=== PATIENT | male | born 1960 | race Caucasian/White ===

== ENCOUNTER 2020-10-28 10:26 | Emergency (ER) | payer BC ==
[2020-10-28] MEDS ORDERED: Ondansetron 4 MG Tab.DIS PO ONE (11:29)
--- NOTE | 2020-10-28 11:37 | EDM.PDOC ---
ED HPI GENERAL MEDICAL PROBLEM - General Chief Complaint: General Stated Complaint: DIZZY,NAUSEA,CLAMMY Time Seen by Provider: 10/28/20 11:05 Source of Information: Reports: Patient, RN Notes Reviewed History Limitations: Reports: No Limitations - History of Present Illness INITIAL COMMENTS - FREE TEXT/NARRATIVE: Patient is a 60-year-old male presenting to the emergency department with complaints of intermittent sensation of the room spinning and nausea. Reports this has been going on since yesterday. Symptoms are worse when he first wakes in the morning. Throughout the day they improve. Today he had a DEXA scan at [facility], and when he had to lay down for the test and then move the bed around he had symptoms of extreme vertigo. He has not vomited, but does co mplain of nausea. States that his balance feels off when symptoms are present. Reports he has had this in the past on 2 other occasions over the last few months. Symptoms in these situations resolved spontaneously. - Related Data Allergies Allergy/AdvReac Type Severity Reaction Status Date / Time No Known Allergies Allergy Verified 10/28/20 10:44 Home Meds: Home Meds Meclizine [Antivert] 25 mg PO Q6H PRN #30 tab 10/28/20 [Rx] Meloxicam, Submicronized [Meloxicam] 7.5 mg PO DAILY 10/28/20 [History] Ondansetron [Zofran ODT] 4 mg PO Q6H PRN #10 tab.dis 10/28/20 [Rx] Pramipexole [Mirapex] 0.125 mg PO DAILY 10/28/20 [History] Ramipril 10 mg PO DAILY 10/28/20 [History] Rosuvastatin [Crestor] 20 mg PO DAILY 10/28/20 [History] traMADol [Ultram] 100 mg PO DAILY 10/28/20 [History] Past Medical History Cardiovascular History: Reports: Hypertension - Past Surgical History Musculoskeletal Surgical History: Reports: Other (See Below) Other Musculoskeletal Surgeries/Procedures:: fractured foot with surgical repair x 2 Social & Family History - Tobacco Use Tobacco Use Status *Q: Former Tobacco User Used Tobacco, but Quit: Yes Month/Year Tobacco Last Used: 18 yrs ago ED ROS GENERAL - Review of Systems Review Of Systems: See Below Constitutional: Reports: No Symptoms. Denies: Fever, Chills HEENT: Reports: Vertigo. Denies: Vision Change Respiratory: Reports: No Symptoms. Denies: Shortness of Breath Cardiovascular: Reports: No Symptoms. Denies: Chest Pain, Dyspnea on Exertion, Syncope Endocrine: Reports: No Symptoms GI/Abdominal: Reports: Nausea. Denies: Abdominal Pain, Diarrhea, Vomiting : Reports: No Symptoms Musculoskeletal: Reports: No Symptoms Skin: Reports: No Symptoms Neurological: Reports: Dizziness Psychiatric: Reports: No Symptoms Hematologic/Lymphatic: Reports: No Symptoms Immunologic: Reports: No Symptoms ED EXAM, GENERAL - Physical Exam Exam: See Below General Appearance: Alert, WD/WN, No Apparent Distress Eye Exam: Bilateral Eye: Normal Inspection (no visible nystagmus with position changes.) Ears: Normal External Exam, Normal Canal, Hearing Grossly Normal, Normal TMs Respiratory/Chest: No Respiratory Distress, Lungs Clear, Normal Breath Sounds, No Accessory Muscle Use, Chest Non-Tender Cardiovascular: Normal Peripheral Pulses, Regular Rate, Rhythm, No Edema, No Gallop, No JVD, No Murmur, No Rub GI/Abdominal: Normal Bowel Sounds, Soft, Non-Tender, No Organomegaly, No Distention, No Abnormal Bruit, No Mass Neurological: Alert, Oriented, CN II-XII Intact, Normal Cognition, Normal Gait, Normal Reflexes, No Motor/Sensory Deficits Psychiatric: Normal Affect, Normal Mood Skin Exam: Warm, Dry, Intact, Normal Color, No Rash #1 Interpretation EKG Date: 10/28/20 Time: 12:31 Rhythm: NSR Rate (Beats/Min): 70 [place]: Normal P-Wave: Present QRS: Normal ST-T: Normal QT: Normal EKG Interpretation Comments: Small Q wave in lead III, no ST elevation or depression, EKG interpreted by Dr. Johnathan OSMAN Course - Vital Signs Last Recorded V/S: Last Vital Signs Temp 98.4 F 10/28/20 10:41 Pulse 67 10/28/20 10:41 Resp 18 10/28/20 10:41 BP 146/93 H 10/28/20 10:41 Pulse Ox 99 10/28/20 10:41 - Orders/Labs/Meds Labs: Laboratory Tests 10/28/20 10/28/20 Range/Units 11:42 11:42 WBC 7.72 (4.23-9.07) K/mm3 RBC 5.30 (4.63-6.08) M/mm3 Hgb 15.1 (13.7-17.5) gm/dl Hct 45.2 (40.1-51.0) % MCV 85.3 (79.0-92.2) fl MCH 28.5 (25.7-32.2) pg MCHC 33.4 (32.2-35.5) g/dl RDW Std Deviation 38.9 (35.1-43.9) fL Plt Count 299 (163-337) K/mm3 MPV 9.9 (9.4-12.3) fl Neut % (Auto) 66.5 (34.0-67.9) % Lymph % (Auto) 21.1 L (21.8-53.1) % [place] % (Auto) 7.9 (5.3-12.2) % Eos % (Auto) 2.8 (0.8-7.0) Baso % (Auto) 1.6 H (0.1-1.2) % Neut # (Auto) 5.13 (1.78-5.38) K/mm3 Lymph # (Auto) 1.63 (1.32-3.57) K/mm3 [place] # (Auto) 0.61 (0.30-0.82) K/mm3 Eos # (Auto) 0.22 (0.04-0.54) K/mm3 Baso # (Auto) 0.12 H (0.01-0.08) K/mm3 Manual Slide Review Normal smear Sodium 142 (136-145) mEq/L Potassium 4.3 (3.5-5.1) mEq/L Chloride 106 (98-107) mEq/L Carbon Dioxide 24 (21-32) mEq/L Anion Gap 16.3 H (5-15) BUN 18 (7-18) mg/dL Creatinine 0.8 (0.7-1.3) mg/dL Est Cr Clr Drug Dosing 92.95 mL/min Estimated GFR (MDRD) > 60 (>60) mL/min BUN/Creatinine Ratio 22.5 H (14-18) Glucose 93 (70-99) mg/dL Calcium 9.8 (8.5-10.1) mg/dL Magnesium 1.9 (1.8-2.4) mg/dL Total Bilirubin 0.4 (0.2-1.0) mg/dL AST 26 (15-37) U/L ALT 31 (16-63) U/L Alkaline Phosphatase 75 (46-116) U/L Troponin I < 0.017 (0.00-0.056) ng/mL Total Protein 6.9 (6.4-8.2) g/dl Albumin 4.0 (3.4-5.0) g/dl Globulin 2.9 gm/dL Albumin/Globulin Ratio 1.4 (1-2) Meds: Medications Discontinued Medications Generic Name Dose Route Start Last Admin Trade Name Chadq PRN Reason Stop Dose Admin Meclizine HCl 25 mg 10/28/20 11:28 10/28/20 11:36 Meclizine 25 Mg Tab.Chew PO 10/28/20 11:29 25 mg ONETIME ONE Administration Ondansetron HCl 4 mg 10/28/20 11:29 10/28/20 11:36 Ondansetron 4 Mg Tab.Dis PO 10/28/20 11:30 4 mg ONETIME ONE Administration - Re-Assessments/Exams Free Text/Narrative Re-Assessment/Exam: Patient is a 60-year-old male presenting to the emergency department with complaints of intermittent vertigo symptoms. Reports he has had these symptoms on other occasions over the last few months, however they generally resolve and he does not have recurrence for an extended period of time. Reports symptoms of vertigo yesterday morning as well as today while having a DEXA scan completed. At time of exam, he reports symptoms are minimal. He does have some sensation of the room spinning when going from a lying to a sitting position, however has no symptoms or nystagmus visual with head turning. I have ordered blood work, EKG, chest x-ray, head CT. I will give him meclizine and Zofran p.o. 10/28/20 12:58 Patient is feeling much better after medications given. Blood work was grossly unremarkable. Head CT impression as follows: 1. Findings suggestive of mild small vessel ischemia demyelination change. This is somewhat unusual is no significant atrophy is present. Consider MRI study to confirm. 2. No acute abnormalities otherwise seen with a noncontrast head CT study. EKG shows normal sinus rhythm at 70 with no evidence of acute ischemia. Discussed results with patient. I will send referral to chief of safety and protection, Dr. Dr. Baumann for evaluation and treatment of her vertigo symptoms. I also recommend follow-up with his primary care provider, Nory Yung, to have outpatient MRI scheduled. He verbalized understanding of this. Discharge instructions as documented. Departure - Departure Time of Disposition: 13:00 Disposition: Home, Self-Care 01 Condition: Good Clinical Impression: Vertigo - Discharge Information *PRESCRIPTION DRUG MONITORING PROGRAM REVIEWED*: No *COPY OF PRESCRIPTION DRUG MONITORING REPORT IN PATIENT HARSH: No Prescriptions: Meclizine [Antivert] 25 mg PO Q6H PRN #30 tab PRN Reason: Dizziness Ondansetron [Zofran ODT] 4 mg PO Q6H PRN #10 tab.dis PRN Reason: Nausea/Vomiting Instructions: Vertigo, [id number] Referrals: Nory Quiroz NP [Primary Care Provider] - Herrera Baumann MD [Ordering Only Provider] - Forms: ED Department Discharge Additional Instructions: You were seen in the emergency department today for evaluation with regards to symptoms of vertigo. Work-up included blood work, chest x-ray, EKG, and head CT. Results of your work were found to be overall normal with the exception of some evidence of small vessel ischemic donation change within your brain. This is not specific to any disease process, however MRI is recommended to further evaluate. While in the ER, you received meclizine and Zofran which did improve your symptoms of vertigo. I have sent prescription for these. Use them as prescribed. Referral has been sent to chief of safety and protection, Dr. Baumann. Recommend calling his office to set up a follow-up appointment for evaluation and treatment with regards to vertigo symptoms. Also recommend follow-up with your primary care provider, Nory Quiroz NP, to discuss outpatient MRI of the brain. Return to ER for any new or worsening symptoms. Sepsis Event Note (ED) - Evaluation Sepsis Screening Result: No Definite Risk
--- NOTE | 2020-10-28 12:21 | CT ---
Head CT Technique: Multiple axial sections through the brain were obtained. Intravenous contrast was not utilized. Reconstructed coronal and sagittal images were also obtained. Findings: Ventricles along with basal cisterns and sulci over the convexities are within normal limits for the patient's age. Several minimal areas of low density are seen within the subcortical white matter within both parietal regions. These are nonspecific but given the patient's age may represent minimal small vessel ischemic demyelination change. No other abnormal parenchymal densities are seen. No evidence of intracranial hemorrhage is seen. No midline shift or mass-effect is appreciated. Bone window settings were reviewed which show the visualized mastoid sinuses and paranasal sinuses to show nothing acute. No acute calvarial abnormality is appreciated. Impression: 1. Findings suggestive of mild small vessel ischemic demyelination change. This is somewhat unusual as no significant atrophy is present. Consider MRI study to confirm. 2. No acute abnormality is otherwise seen on noncontrast head CT study. Diagnostic code #3
--- NOTE | 2020-10-28 12:24 | CR ---
Chest: PA and lateral views of the chest were obtained. Comparison: No prior chest imaging is available. Heart size and mediastinum are within normal limits. Lungs are clear with no acute parenchymal change. Widening of the right acromioclavicular joint is seen with small bony density off the distal right clavicle which appears to represent old surgery. Mild degenerative change is scattered within the spine. Impression: 1. Nothing acute is seen on 2 view chest x-ray. Diagnostic code #2
== END 2020-10-28 13:14 | disposition home or self-care (01) ==
LOC: JD.ED 10:26
DX: R42 Dizziness and giddiness (principal); I10 Essential (primary) hypertension; Z87.891 Personal history of nicotine dependence
CPT/HCPCS: 36415; 70450; 71046; 80053; 83735; 84484; 85025; 93005; 99284; A9270; 93010

== ENCOUNTER 2021-07-27 10:47 | Day surgery (SDC) | payer BC ==
[~2021-07-27 10:47] MED LIST: Acetaminophen 325 MG Tab PO SCH; Lactated Ringers 1,000 ML IV SCH; Lidocaine 1% 0 ML ONE; Lidocaine 1%/Sod Bicarbonate in NS 8.4% 1 ML Syringe IDERM PRN; Midazolam 1 MG/ML 2 ML SDV ONE; Pregabalin 25 MG Cap PO SCH; Propofol 200 MG/20 ML SDV ONE; Sodium Chloride 0.9% 10 ML Syringe FLUSH PRN; Sodium Chloride 0.9% 10 ML Syringe FLUSH SCH; Vancomycin 1 GM SDV ONE; fentaNYL 100 MCG/2 ML SDV ONE; oxyCODONE ER 10 MG TAB.ER PO SCH
[2021-07-27] MEDS ORDERED: ceFAZolin 1 GM Vial ONE (11:45)
[2021-07-27] MEDS ORDERED: Lactated Ringers 1,000 ML ONE (11:51)
[2021-07-27] MEDS ORDERED: ePHEDrine 50 MG/ML SDV ONE (11:55)
[2021-07-27] MEDS ORDERED: Propofol 200 MG/20 ML SDV ONE ×3 (12:30→12:51)
[2021-07-27] MEDS: Morphine 8 MG, EPINEPHrine 0.3 MG, Cefuroxime 750 MG, Ketorolac 30 MG, Sodium Chloride ... PRN ×10 (12:31→12:49)
[2021-07-27] MEDS: Triamcinolone Acetonide 40 MG/ML 1 ML SDV ONE ×2 (12:31→13:10)
[2021-07-27] MEDS: Bupivacaine 0.25% 10 ML SDV ONE ×2 (12:32→13:10)
[2021-07-27] MEDS ORDERED: Ondansetron 4 MG/2 ML SDV IVPUSH PRN (12:33)
[2021-07-27] MEDS ORDERED: fentaNYL 100 MCG/2 ML SDV IVPUSH PRN (12:33)
[2021-07-27] MEDS ORDERED: diphenhydrAMINE 50 MG/ML SDV IVPUSH PRN (12:33)
[2021-07-27] MEDS ORDERED: Lidocaine 1% 4 ML ONE (12:40)
[2021-07-27] MEDS ORDERED: fentaNYL 100 MCG/2 ML SDV ONE (12:41)
[2021-07-27] MEDS ORDERED: Midazolam 1 MG/ML 2 ML SDV ONE (12:41)
[2021-07-27] MEDS ORDERED: Ondansetron 4 MG/2 ML SDV ONE (13:13)
[2021-07-27] MEDS ORDERED: Ketorolac 30 MG/ML SDV ONE (13:13)
[2021-07-27] MEDS ORDERED: Ropivacaine 0.5% 5 MG/ML 30 ML SDV ONE (13:27)
[2021-07-27] MEDS ORDERED: EPINEPHrine 1 MG/ML SDV ONE (13:28)
[2021-07-27] MEDS ORDERED: oxyCODONE 5 MG Tab PO PRN (14:59)
== END 2021-07-27 15:50 | disposition home or self-care (01) ==
LOC: JD.SDS 10:47
PROVIDERS: ATTEND Orthopaedic Surgery
DX: M17.0 Bilateral primary osteoarthritis of knee (principal); I10 Essential (primary) hypertension; E78.00 Pure hypercholesterolemia, unspecified; G25.81 Restless legs syndrome; Z98.890 Other specified postprocedural states; Z79.899 Other long term (current) drug therapy; Z87.891 Personal history of nicotine dependence; Z79.82 Long term (current) use of aspirin
CPT/HCPCS: 20610; 27447; 73560; 97110; 97116; 97161; A9270; C1713; C1776; J0171; J0690; J0697; J1885; J2250; J2270; J2370; J2405; J2704; J2795; J3010; J3301; J3370; J3490; J7120; 01402; 64447; 76942

== ENCOUNTER 2021-10-01 08:54 | Day surgery (SDC) | payer BC ==
[~2021-10-01 08:54] MED LIST changes: -Acetaminophen 325 MG Tab PO SCH; -Lidocaine 1% 0 ML ONE; -Midazolam 1 MG/ML 2 ML SDV ONE; -Pregabalin 25 MG Cap PO SCH; -Propofol 200 MG/20 ML SDV ONE; -Vancomycin 1 GM SDV ONE; -fentaNYL 100 MCG/2 ML SDV ONE; -oxyCODONE ER 10 MG TAB.ER PO SCH
[2021-10-01] MEDS ORDERED: Propofol 200 MG/20 ML SDV ONE ×4 (09:24→09:58)
== END 2021-10-01 10:50 | disposition home or self-care (01) ==
LOC: JD.SDS 08:54
PROVIDERS: ATTEND Surgery
DX: Z12.11 Encounter for screening for malignant neoplasm of colon (principal); D12.5 Benign neoplasm of sigmoid colon; K57.30 Diverticulosis of large intestine without perforation or abscess without bleeding; K64.8 Other hemorrhoids; M10.9 Gout, unspecified; I10 Essential (primary) hypertension; E78.00 Pure hypercholesterolemia, unspecified; Z87.891 Personal history of nicotine dependence; Z79.82 Long term (current) use of aspirin; Z79.899 Other long term (current) drug therapy; Z98.890 Other specified postprocedural states
CPT/HCPCS: 45385; J2704; J7120; 00812

== ENCOUNTER 2021-11-23 06:20 | Day surgery (SDC) | payer BC ==
[~2021-11-23 06:20] MED LIST changes: +Acetaminophen 325 MG Tab PO SCH; +Morphine 8 MG, EPINEPHrine 0.3 MG, Cefuroxime 750 MG, Ketorolac 30 MG, Sodium Chloride ... PRN; +Pregabalin 25 MG Cap PO SCH; +Vancomycin 1 GM SDV ONE; +oxyCODONE ER 10 MG TAB.ER PO SCH
[2021-11-23] MEDS ORDERED: fentaNYL 100 MCG/2 ML SDV ONE (06:39)
[2021-11-23] MEDS ORDERED: Midazolam 1 MG/ML 2 ML SDV ONE (06:39)
[2021-11-23] MEDS ORDERED: ceFAZolin 2 GM Vial ONE (06:39)
[2021-11-23] MEDS ORDERED: Propofol 200 MG/20 ML SDV ONE ×2 (06:39→08:19)
[2021-11-23] MEDS ORDERED: EPINEPHrine 1 MG/ML SDV ONE (06:44)
[2021-11-23] MEDS ORDERED: Ropivacaine 0.5% 5 MG/ML 30 ML SDV ONE (06:44)
[2021-11-23] MEDS ORDERED: fentaNYL 100 MCG/2 ML SDV IVPUSH PRN (08:00)
[2021-11-23] MEDS ORDERED: Ondansetron 4 MG/2 ML SDV IVPUSH PRN (08:00)
[2021-11-23] MEDS ORDERED: HYDROmorphone 0.5 MG/0.5 ML Syringe IVPUSH PRN (08:00)
[2021-11-23] MEDS ORDERED: Ketorolac 30 MG/ML SDV ONE (08:42)
[2021-11-23] MEDS ORDERED: Lactated Ringers 1,000 ML ONE (08:49)
[2021-11-23] MEDS ORDERED: oxyCODONE 5 MG Tab PO PRN ×2 (09:41→11:55)
== END 2021-11-23 12:15 | disposition home or self-care (01) ==
LOC: JD.SDS 06:20
PROVIDERS: ATTEND Orthopaedic Surgery
DX: M17.12 Unilateral primary osteoarthritis, left knee (principal); I10 Essential (primary) hypertension; E78.00 Pure hypercholesterolemia, unspecified; G89.29 Other chronic pain; F90.9 Attention-deficit hyperactivity disorder, unspecified type; N52.9 Male erectile dysfunction, unspecified; Z79.899 Other long term (current) drug therapy; Z79.891 Long term (current) use of opiate analgesic; Z79.810 Long term (current) use of selective estrogen receptor modulators (SERMs); Z98.890 Other specified postprocedural states; Z79.83 Long term (current) use of bisphosphonates; Z79.84 Long term (current) use of oral hypoglycemic drugs; Z79.1 Long term (current) use of non-steroidal anti-inflammatories (NSAID); Z98.1 Arthrodesis status
CPT/HCPCS: 0055T; 27447; 36415; 64447; 73560; 85025; 97116; 97161; A9270; C1713; C1776; J0171; J0690; J0697; J1885; J2250; J2270; J2704; J2795; J3010; J3370; J7120; 01402; 64450; 97162-GP

== ENCOUNTER 2024-11-01 09:32 | Day surgery (SDC) | payer BC, OTHER ==
[~2024-11-01 09:32] MED LIST changes: -Acetaminophen 325 MG Tab PO SCH; -Lactated Ringers 1,000 ML IV SCH; -Lidocaine 1%/Sod Bicarbonate in NS 8.4% 1 ML Syringe IDERM PRN; -Morphine 8 MG, EPINEPHrine 0.3 MG, Cefuroxime 750 MG, Ketorolac 30 MG, Sodium Chloride ... PRN; -Pregabalin 25 MG Cap PO SCH; -Vancomycin 1 GM SDV ONE; -oxyCODONE ER 10 MG TAB.ER PO SCH
[2024-11-01] MEDS ORDERED: fentaNYL 250 MCG/5 ML SDV ONE (09:38)
[2024-11-01] MEDS ORDERED: Ketorolac 30 MG/ML SDV ONE (09:38)
[2024-11-01] MEDS ORDERED: Midazolam 1 MG/ML 2 ML SDV ONE (09:38)
[2024-11-01] MEDS ORDERED: Ondansetron 4 MG/2 ML SDV ONE (09:38)
[2024-11-01] MEDS ORDERED: Dexamethasone 4 MG/ML 5 ML MDV ONE (09:38)
[2024-11-01] MEDS ORDERED: Propofol 200 MG/20 ML SDV ONE (09:39)
[2024-11-01] MEDS ORDERED: dexmedeTOMIDine HCl 200 MCG/2 ML SDV ONE (09:42)
[2024-11-01] MEDS: Lactated Ringers 1,000 ML IV SCH (09:50)
[2024-11-01] MEDS ORDERED: Lactated Ringers 1,000 ML ONE (10:20)
[2024-11-01] MEDS ORDERED: Ondansetron 4 MG/2 ML SDV IVPUSH PRN (10:24)
[2024-11-01] MEDS ORDERED: fentaNYL 100 MCG/2 ML SDV IVPUSH PRN (10:24)
[2024-11-01] MEDS ORDERED: ePHEDrine 50 MG/ML SDV ONE (10:33)
== END 2024-11-01 14:40 | disposition home or self-care (01) ==
LOC: JD.SDS 09:32
PROVIDERS: ATTEND Surgery
DX: K40.20 Bilateral inguinal hernia, without obstruction or gangrene, not specified as recurrent (principal); E78.00 Pure hypercholesterolemia, unspecified; I10 Essential (primary) hypertension; Z79.82 Long term (current) use of aspirin; Z79.899 Other long term (current) drug therapy
CPT/HCPCS: 49650; A9270; J0690; J1100; J1885; J2003; J2250; J2405; J2704; J3010; J7120; 00832; J3490